=== PATIENT | female | born 1960 | race African-American/Black ===

== ENCOUNTER → 2018-07-31 | Outpatient (CLI) | payer OTHER | LOC: RAD 12:55 | DX: Z12.31 Encounter for screening mammogram for malignant neoplasm of breast (principal); M81.0 Age-related osteoporosis without current pathological fracture; M54.5 Low back pain ==

== ENCOUNTER → 2018-08-06 | Outpatient (CLI) | payer OTHER | LOC: NUC 14:26 | DX: M81.0 Age-related osteoporosis without current pathological fracture (principal) ==

== ENCOUNTER 2018-08-23 10:54 | Emergency (ER) | payer OTHER ==
[~2018-08-23] VITALS: Ht 157.5 cm; Wt 90.7 kg
[2018-08-23 11:18] LABS: BASOPHILS 0.8 % (0.0-2.0); HEMATOCRIT 39.8 % (37.0-47.0); HEMOGLOBIN 13.6 gm/dL (12.0-15.0); LYMPHOCYTES 38.7 % (24.0-44.0); MCH 29.2 pg (26.0-34.0); MCHC 34.1 g/dL (28.0-37.0); MCV 85.6 fL (80.0-100.0); MONOCYTES 5.7 % (1.0-8.0); PLATELET COUNT 267 thou/uL (150-400); POLYS 52.8 % (36.0-66.0); RBC 4.64 mil/uL (4.20-5.00); RDW 13.7 % (10.5-14.5); WBC 7.7 thou/uL (4.0-11.0)
[2018-08-23 11:27] LABS: ANION GAP 12 mmol/L (7-16); BUN 15 mg/dL (7-18); CALCIUM 9.7 mg/dL (8.5-10.1); CHLORIDE 107 mmol/L (98-107); CO2 22 mmol/L (21-32); CREATININE 0.9 mg/dL (0.6-1.0); GLUCOSE 136 mg/dL (74-106); POTASSIUM 3.8 mmol/L (3.5-5.1); SODIUM 141 mmol/L (136-145)
[2018-08-23 11:36] LABS: TROPONIN-I <0.06 ng/mL (<0.06)
[2018-08-23 13:24] VITALS: BP 128/53
--- NOTE | 2018-08-24 18:37 | EKG ---
[place] [address] [employer] [place] [address] ELECTROCARDIOGRAM REPORT Name: KELLY PERALES [facility] [id number] ������������������ Admission: 08/23/18 ������������������ Attend Phys: Discharge: 08/23/18 ������������������ Date of : 60 Report #: [id number] ����������������������������������������������������������������� [id number] THIS REPORT FOR: //name// [facility] ED Test Date: 2018-08-23 Test Time: 11:00:54 Pat Name: KELLY PERALES Department: Room: Gender: F Tester Electronic Scale: TREVON : 1960 Requested By: Dyllan Lynn Order Number: [id number] MD: Elieser Borrego Measurements Intervals [place] Rate: 60 P: -23 OR: 159 QRS: 6 QRSD: 99 T: 104 QT: 418 QTc: 418 Interpretive Statements Sinus rhythm Early transition Borderline left atrial enlargement Nonspecific ST-T wave changes No previous ECG available for comparison Electronically Signed On 08-24-2018 18:37:20 CDT by Elieser Borrego [email or web address] ��������������������������������������������� <ELECTRONICALLY SIGNED> ���������������������������������������� By: Elieser Borrego MD ��������������������������������������������� 08/24/18 1837 1100 Artemio Borrego MD /HUMBERTO
== END 2018-08-23 13:20 | disposition home or self-care (01) ==
LOC: ER 10:54
PROVIDERS: Nurse Practitioner
DX: R07.89 Other chest pain (principal); F17.210 Nicotine dependence, cigarettes, uncomplicated; E78.5 Hyperlipidemia, unspecified; Z90.711 Acquired absence of uterus with remaining cervical stump

== ENCOUNTER → 2019-11-27 | Outpatient (CLI) | payer OTHER ==
[~2019-11-27] MED LIST: ASPIR 8181 M1 PO; DEXILANT60 MG PO; FOSAMAX 70 MG T70 MG PO; IPRAT-ALBUT 0.5-3 ML INH; ISOSORBIDE MONO60 M1 PO; MULTIVITAMINS1 EAC7 PO; NITROSTAT0.4 M1 SUBLING; OMEPRAZOLE40 MG PO; QVAR REDIHALE10.6 G1 INH; ROSUVASTATIN CA20 MG PO; TOPROL XL25 MG PO; VITAMIN D325 MC5 PO
== END ==
LOC: RAD 10:30
PROVIDERS: ATTEND Neuromusculoskeletal Medicine & OMM
DX: M43.16 Spondylolisthesis, lumbar region (principal); M25.561 Pain in right knee; M25.562 Pain in left knee; R29.890 Loss of height; M25.559 Pain in unspecified hip

== ENCOUNTER → 2019-12-12 | Outpatient (CLI) | payer OTHER | LOC: LAB 09:15 | PROVIDERS: ATTEND Student in an Organized Health Care Education/Training Program | DX: Z01.812 Encounter for preprocedural laboratory examination (principal); Z11.59 Encounter for screening for other viral diseases ==

== ENCOUNTER → 2019-12-15 | Outpatient (CLI) | payer OTHER ==
[~2019-12-15] VITALS: Ht 157.5 cm; Wt 107.0 kg
--- NOTE | 2019-12-16 18:06 | PATH ---
[facility] [address] [address] PATHOLOGY RPT PROCEDURE Name: KELLY SEVILLA Room #: REG [facility] M.Anahy.#: [id number] Admission: 12/15/19 Date of : 60 Discharge: Report #: [id number] Path Case #: [id number] [facility] Accession Number: [id number] . 01 Material submitted: . PART A: stomach - RANDOM GASTRIC BIOPSY R/O H. PYLORI PART B: esophagus - ESOPHAGUS BIOPSY R/O BARRETTS PART C: colon - POLYP AT ASCENDING COLON X2. Modifiers: ascending . 01 Clinical history: . A. Rule H. pylori B. Rule of John's . 02 Diagnosis: A. Gastric mucosa, random gastric rule out H. pylori, endoscopic biopsy: - Helicobacter pylori induced moderate active gastritis. - Negative for intestinal metaplasia or atrophy. - Mild number of Helicobacter pylori organisms present on the properly controlled immunohistochemical stain performed. . . B. Gastroesophageal mucosa, esophagus rule out John's, endoscopic biopsy: - Mild active esophagitis showing changes compatible with reflux esophagitis. - Negative for intestinal metaplasia or dysplasia. . C. Polyp x 2, at ascending colon, endoscopic biopsy: - Tubular adenoma x 2. - Negative for high grade dysplasia. (IUV/db; 12/16/2019) LBQ 12/16/2019 1426 Local . 02 Electronically signed: . Rosalba Smith MD, Pathologist NPI- [id number] . 01 Gross description: . A. The specimen is received in formalin, labeled "Kelly Sevilla, random gastric" and consists of multiple fragments of pink-alexander tissue measuring 1.3 x 0.6 x 0.3 cm in aggregate which are entirely submitted in A1. . B. The specimen is received in formalin, labeled "Kelly Sevilla, esophagus BX" and consists of 3 fragments of pink-alexander tissue measuring between 0.2 x 0.1 cm and 0.4 x 0.3 cm which are entirely submitted in B1. . C. The specimen is received in formalin, labeled "Kelly Seivlla, polyp at [address] [address] PATHOLOGY RPT PROCEDURE Name: KELLY SEVILLA S Room #: REG JOSELYN Mcneil#: [id number] Admission: 12/15/19 Date of : 60 Discharge: Report #: [id number] Path Case #: [id number] ascending colon x2" and consists of 3 segments of pink-alexander tissue measuring between 0.4 x 0.3 cm and 2.0 x 0.6 cm which are entirely submitted in C1. (SDY; 12/15/2019) SYU/SYU 12/15/2019 1742 Local . 02 Pathologist provided ICD-10: K29.70, B96.81, K20.9, D12.2 . 02 CPT . 167027, 471581, 337737, [id number] Specimen Comment: A courtesy copy of this report has been sent to [phone] Specimen Comment: [phone], Specimen Comment: Report sent to ,DR ORDAZ / DR BRISCOE Performed at: [address], [place] [id number] MD Ralf Ross MD Phone: [phone] Performed at: [address] [id number] MD Rosalba Smith MD Phone: [phone]
== END | disposition home or self-care (01) ==
LOC: GI 07:47
PROVIDERS: ATTEND Internal Medicine Gastroenterology
DX: Z12.11 Encounter for screening for malignant neoplasm of colon (principal); D12.2 Benign neoplasm of ascending colon; D17.5 Benign lipomatous neoplasm of intra-abdominal organs; B96.81 Helicobacter pylori [H. pylori] as the cause of diseases classified elsewhere; K29.70 Gastritis, unspecified, without bleeding; R12 Heartburn; R11.0 Nausea; K21.0 Gastro-esophageal reflux disease with esophagitis; J45.909 Unspecified asthma, uncomplicated; Z98.890 Other specified postprocedural states; Z79.899 Other long term (current) drug therapy; Z90.711 Acquired absence of uterus with remaining cervical stump; Z87.891 Personal history of nicotine dependence; Z88.0 Allergy status to penicillin; Z88.8 Allergy status to other drugs, medicaments and biological substances
CPT/HCPCS: 62110; 62900